=== PATIENT | female | born 1945 | race Caucasian/White ===

== ENCOUNTER 2016-11-08 12:21 | Outpatient (CLI) ==
--- NOTE | 2016-11-09 07:57 | MRI ---
EXAM: MRI of the temporomandibular joints (bilateral) without contrast COMPARISON: None available. HISTORY: Right jaw pain. The jaw reportedly feels like it slips in and out of the socket. TECHNIQUE: Multiplanar noncontrast MR images of the temporomandibular joints were acquired using a 1.2 Payton magnet with the jaw in both the open and closed position. FINDINGS: Right temporomandibular joint: There is marked arthritis involving the right temporomand ibular joint with articular surface remodeling and marginal osteophytes. There is decreased excursio n. There is markedly diminished size irregularity of the posterior portion of the articular disc rel ated to a degenerative type tear. The anterior articular disc remnant remains displaced anteriorly with both opening and closing of the jaw. 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 There is decreased excursion. There is overall diminished size of the articular di sc in particular posteriorly related to a degenerative type tear with partial disc recapture during opening and closing of the jaw though there is persistent anterior displacement of the remnant with opening and closing. IMPRESSION: 1. Marked degenerative changes of the right temporomandibular joint with moderately severe degenera tive changes of the left temporomandibular joint. 2. 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 2. Less extensive degenerative type tear of the articular disc at the left temporomandibular joint with partial disc recapture as described.
== END 2016-11-08 12:22 | disposition home or self-care (01) ==
LOC: RAD 12:21
PROVIDERS: ATTEND Family Medicine
DX: M26.609 Unspecified temporomandibular joint disorder, unspecified side (principal)

== ENCOUNTER 2018-04-20 14:30 | Outpatient (CLI) ==
--- NOTE | 2018-04-20 16:51 | DI ---
EXAM: Three views of the left fingers. History: Left finger cyst. Findings: No acute fracture or dislocation. Moderate to severe narrowing of the DIP joint of the th ird digit with marginal sclerosis and osteophyte formation. There is soft tissue swelling of the thir d digit which is more focal surrounding the DIP joint. No abnormal calcifications or radiopaque forei gn bodies. Impression: 1. No acute osseous abnormality. 2. 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 3. Soft tissue swelling of the third digit which is more focal surrounding the DIP joint.
== END 2018-04-20 14:31 | disposition home or self-care (01) ==
LOC: RAD 14:30
PROVIDERS: ATTEND Family Medicine
DX: M25.842 Other specified joint disorders, left hand (principal)

== ENCOUNTER 2018-11-27 15:00 | Outpatient (RCR) ==
--- NOTE | 2018-11-05 16:31 | RS.OPPTEV2 ---
Date of Note: 11/05/18 Visit #: 1 Number of visits approved by Insurance: n/a Date of Evaluation: 11/05/18 Payer Source: MEDICARE Surgery Performed?: No Treatment Diagnosis: trochanteric bursitis L hip, L hip pain, muscle tightness History of Condition/Mechanism of Injury:: pt reports pain began approx 1 year ago. States that MD has been giving her injections but she continues to have pain. Prior Level of Function.....Patient was independent with: ADL's, Self Care, Caregiving, Ambulation/Mobility, Community Integration/Access Functional Limitations: Sleep, Standing, Squatting, Ambulation Current Subjective/complaints:: pt states that she continues to have pain in area of L trochanter. pt states pain is limiting her from performing her normal hobby of gardening. Treatment Side (optional): Left *Precautions: n/a Medical History Medical History: Arthritis Medical History Comments:: basal cell skin CA Smoking Status: Never smoker Hx Home Medications: vesicare, aspirin, citilophram, diclofenac, trazadone, loratadine, pantoprazole, eye vitamin Patient's Goals: decrease hip pain Pain Assessment - Pain Description Pain Location: L hip in area of trochanter Pain Description: Aching Current Pain Intensity: 1 at rest Worst Pain Intensity: 7 Functional Outcome Measure LE Functional Scale: 51 - G Codes & Severity Modifier G Codes & Modifier: n/a Source of G Code score: n/a Observation - Observation Posture: Forward Head, Rounded Shoulders, Increased Thoracic Kyphosis Handedness: Right Gait - Gait Pattern General Gait Pattern Observation: No Deviations/Normal (pt amb with slight antalgic gait.) General Range of Motion: BUE WFL's. RLE WFL's. LLE WFL's with pain Muscle Strength: BUE 5/5. RLE 5/5. LLE 4+/5 Hip ROM: Right WFL's Hip Muscle Strength: Right WFL's - Left Hip ROM Left Hip ROM Limitations: Soft Tissue Tightness, Pain, Muscle Weakness, Tightness on Left, Pain on Left - Left Hip Strength Left Hip Flexion: 4 Good Left Hip Extension: 4+ Good + Left Hip Abduction: 4- Good- Left Hip Adduction: 4 Good - Right Hip Strength Comments: hip scour -. IT band tight on L, hamstring tight on L, - Special Test MOE Test: Positive Left Cecy Test: Negative Left Jean-Claude Test: Negative Left Palpation Palpation Findings: Tenderness Comments:: point tenderness L greater trochanter Sensation - Sensation Right Upper Extremity: Intact/Normal Left Upper Extremity: Intact/Normal Right Lower Extremity: Intact/Normal Left Lower Extremity: Intact/Normal Balance - Sitting Balance Static Sitting Balance: Normal Dynamic Sitting Balance: Normal - Standing Balance Static Standing Balance: Good Dynamic Standing Balance: Good - Treatment Modality: Ultrasound Parameters/Method Applied: 1.5 w/cm2 x 8 mins Treatment Area: L greater trochanter Patient Position: Right Sidelying - Heat/Cryotherapy Treatment: Cryotherapy Comments:: L hip Interventions - Exercise/Activities/Manual Therapy Exercises/Activities: pt received stretching to IT band, hamstring, isometric hip add, resisted hip abd, Manual Therapy: n/a - Charges Timed Code Treatment Minutes: 51 Total Treatment Time: 62 Procedures billed for this date of service:: eval low, ultrasound, cold pack EVALUATION COMPLEXITY LEVEL EVALUATION COMPLEXITY LEVEL: HISTORY: Low, EXAM OF BODY SYSTEMS: Low, CLINICAL PRESENTATION: Low, CLINICAL DECISION MAKING: Low Assessment Assessment: pt presents with pain in L hip, increased tightness in L IT band, hamstring, as well as weakness. Feel pt would benefit from skilled PT for therex for stretching, strengthening, as well as modalities to decrease inflammation and pain. Patient Education: Home Exercise Program, Education of Plan of Care Rehab Potential: Good Short Term Goals Goal #1: pt independent with initial HEP Goal to be met by: 11/18/18 Goal #2: Decrease hamstring tightness L equal to R Goal to be met by: 11/18/18 Goal #3: pt rate pain < 4/10 with activity L hip Goal to be met by: 11/18/18 Goal #4: Improve L IT band flexibility to WFL Goal to be met by: 11/18/18 Halfway Goals Goal #1: pt able to tolerate standing, walking to complete normal household tasks Goal to be met by: 11/27/18 Goal #2: Decrease pain in L hip <2/10 with activity Goal to be met by: 11/27/18 Goal #3: pt report able to sleep on L side without increased pain Goal to be met by: 11/27/18 Plan - Treatment to be Provided Procedures: Therapeutic Exercises, Therapeutic Activity, Manual Therapy, Patient Education Modalities: Electrical Stimulation, Ultrasound/Phonophoresis, Cryotherapy, Hot Packs - Treatment Plan Frequency: 3 X week Duration: 3 weeks Dates of Manager [employer] Goals: 11/27/18 Expiration date of current Insurance Approval:: 11/27/18 - Treatment Code (1) Trochanteric bursitis of left hip Code(s): M70.62 - TROCHANTERIC BURSITIS, LEFT HIP (2) Left hip pain Code(s): M25.552 - PAIN IN LEFT HIP (3) Muscle tightness Code(s): M62.89 - OTHER SPECIFIED DISORDERS OF MUSCLE (4) Muscle weakness Code(s): M62.81 - MUSCLE WEAKNESS (GENERALIZED)
--- NOTE | 2018-11-09 15:16 | RS.OPPTDN ---
Subjective Date of Note: 11/09/18 Visit #: 2 Number of visits approved by Insurance: na Date of Evaluation: 11/05/18 Payer Source: MEDICARE Treatment Diagnosis: trochanteric bursitis L hip, L hip pain, muscle tightness Current Subjective/complaints:: Patient reports the L hip is not hurting currently,but had elevated pain over the weekend if she rested on the L hip , also interrupting her sleep at times.She is doing her HEP. *Precautions: n/a Pain Assessment - Pain Description Pain Location: L hip Pain Description: Dull, Aching Current Pain Intensity: 0 at rest Other Comments regarding Pain:: 8/10 at times over the weekend - Treatment Modality: Ultrasound Parameters/Method Applied: 10 mins. @ 1.5 w/cm2,cont. mode to L hip Patient Position: Right Sidelying (20 mins. prior to US and ex) - Heat/Cryotherapy Treatment: Hot Pack (20 mins. prior to US and exercises) Interventions - Exercise/Activities/Manual Therapy Exercises/Activities: 25 mins. total,of isometric hip abd /adduction ,90/90 hamstring stretches,IT band stretches,piriformis stretches.SI muscle energy for leg length discrepancy. Total minutes of Exercise: 25 Manual Therapy: n/a Total minutes of Manual Therapy: 0 HOME EXERCISE PROGRAM: isometric hip abd /add,hamstring stretches,IT band stretches,piriformis stretches - Charges Timed Code Treatment Minutes: 25 Total Treatment Time: 55 Procedures billed for this date of service:: hp ,US, ex 2 Assessment: Patient has only minimal tightness in the hamstrings,greater on the L side .She is tender to palpate the L trochanter and just posterior to it today.She has L LE shorter than the R ,but is corrected after SI muscle energy.She reports no pain with standing and exiting the clinic today.Instructed to use ice for pain relief on the trochanter area ,due to possible tendonitis present. Patient Education: Education of diagnosis, Body/Joint mechanics, Home Exercise Program, Home Safety, Activity Modification, Education of Plan of Care Patient demonstrates compliance with HEP?: Yes Short Term Goals Goal #1: pt independent with initial HEP Goal to be met by: 11/18/18 Progress towards Goal:: Progressing Goal #2: Decrease hamstring tightness L equal to R Goal to be met by: 11/18/18 Progress towards Goal:: Progressing Goal #3: pt rate pain < 4/10 with activity L hip Goal to be met by: 11/18/18 Goal #4: Improve L IT band flexibility to WFL Goal to be met by: 11/18/18 Half-Way Goals Goal #1: pt able to tolerate standing, walking to complete normal household tasks Goal to be met by: 11/27/18 Goal #2: Decrease pain in L hip <2/10 with activity Goal to be met by: 11/27/18 Goal #3: pt report able to sleep on L side without increased pain Goal to be met by: 11/27/18 Plan Dates of Medical Massage Therapist Goals: 11/27/18 Expiration date of current Insurance Approval:: na PLAN: Cont. skilled PT to reduce /eliminate L hip /trochanteric pain,returning to PLOF.
--- NOTE | 2018-11-11 15:44 | RS.OPPTDN ---
Subjective Date of Note: 11/11/18 Visit #: 3 Number of visits approved by Insurance: na Date of Evaluation: 11/05/18 Payer Source: MEDICARE Treatment Diagnosis: trochanteric bursitis L hip, L hip pain, muscle tightness Current Subjective/complaints:: Patient reports the pain increases with going up steps or getting up from a lower seat. *Precautions: n/a Pain Assessment - Pain Description Pain Location: L hip/trochanter Pain Description: Dull, Aching, Chronic Current Pain Intensity: 4 - Treatment Modality: Ultrasound Parameters/Method Applied: 10 mins. @ 1.5 w/cm2 to L hip . Patient Position: Right Sidelying - Heat/Cryotherapy Treatment: Hot Pack (20 mins. prior to US and exercises) Interventions - Exercise/Activities/Manual Therapy Exercises/Activities: 30 mins. total,HEP review ,added R sidelying exercises of clam shells,SLR's.SLR's combined with knee flex/extension,hip IR/ER with knee fully extended. Total minutes of Exercise: 30 Manual Therapy: n/a HOME EXERCISE PROGRAM: isometric hip abd /add,hamstring stretches,IT band stretches,piriformis stretches - Charges Timed Code Treatment Minutes: 40 Total Treatment Time: 60 Procedures billed for this date of service:: hp,US ,ex 2 Assessment: Patient reports fatigue only with side-lying exercises today,with good return demo.She has no increased L hip pain with weight bearing as she exits the clinic today.We discussed to progressing to resistive exercises on leg ress to improve the sit to stand from lower seated surfaces. Patient Education: Education of diagnosis, Body/Joint mechanics, Home Exercise Program, Home Safety, Activity Modification, Education of Plan of Care Patient demonstrates compliance with HEP?: Yes Short Term Goals Goal #1: pt independent with initial HEP Goal to be met by: 11/18/18 Progress towards Goal:: Progressing Goal #2: Decrease hamstring tightness L equal to R Goal to be met by: 11/18/18 Progress towards Goal:: Progressing Goal #3: pt rate pain < 4/10 with activity L hip Goal to be met by: 11/18/18 Progress towards Goal:: Progressing Goal #4: Improve L IT band flexibility to WFL Goal to be met by: 11/18/18 Talent Engineer Goals Goal #1: pt able to tolerate standing, walking to complete normal household tasks Goal to be met by: 11/27/18 Goal #2: Decrease pain in L hip <2/10 with activity Goal to be met by: 11/27/18 Goal #3: pt report able to sleep on L side without increased pain Goal to be met by: 11/27/18 Plan Dates of Care Home Goals: 11/27/18 Expiration date of current Insurance Approval:: na PLAN: Cont. skilled PT to reduce /eliminate L hip pain.
--- NOTE | 2018-11-13 14:05 | RS.OPPTDN ---
Subjective Date of Note: 11/13/18 Visit #: 4 Number of visits approved by Insurance: na Date of Evaluation: 11/05/18 Payer Source: MEDICARE Treatment Diagnosis: trochanteric bursitis L hip, L hip pain, muscle tightness Current Subjective/complaints:: Patient reports she is progressing .She was able to go up and down steps at home earlier today with less difficulty. *Precautions: n/a Pain Assessment - Pain Description Pain Location: L hip Pain Description: Dull, Aching Current Pain Intensity: 0 - Heat/Cryotherapy Treatment: Hot Pack (20 mins. prior to ) Interventions - Exercise/Activities/Manual Therapy Exercises/Activities: HEP review only today. Total minutes of Exercise: 0 Manual Therapy: 20 mins. , soft tissue mobs. to L hip area. Total minutes of Manual Therapy: 20 HOME EXERCISE PROGRAM: isometric hip abd /add,hamstring stretches,IT band stretches,piriformis stretches - Charges Timed Code Treatment Minutes: 25 Total Treatment Time: 45 Procedures billed for this date of service:: hp, manual therapy 2 Assessment: Patient reports the pain is less frequent ,less intense when present.She has tenderness present in the piriformis today with deep tissue mobs.She is very compliant to HEP and motivated to improve. Patient Education: Education of diagnosis, Body/Joint mechanics, Home Exercise Program, Home Safety, Activity Modification, Education of Plan of Care Patient demonstrates compliance with HEP?: Yes Short Term Goals Goal #1: pt independent with initial HEP Goal to be met by: 11/18/18 Progress towards Goal:: Progressing Goal #2: Decrease hamstring tightness L equal to R Goal to be met by: 11/18/18 Progress towards Goal:: Progressing Goal #3: pt rate pain < 4/10 with activity L hip Goal to be met by: 11/18/18 Progress towards Goal:: Progressing Goal #4: Improve L IT band flexibility to WFL Goal to be met by: 11/18/18 Progress towards Goal:: Progressing Change Management Specialist Goals Goal #1: pt able to tolerate standing, walking to complete normal household tasks Goal to be met by: 11/27/18 Progress towards goal: Progressing (tolerating up/down steps better) Goal #2: Decrease pain in L hip <2/10 with activity Goal to be met by: 11/27/18 Goal #3: pt report able to sleep on L side without increased pain Goal to be met by: 11/27/18 Plan Dates of [facility] Goals: 11/27/18 Expiration date of current Insurance Approval:: na PLAN: Cont. skilled PT to reduce/eliminate L hip /trochanteric pain.
--- NOTE | 2018-11-16 16:22 | RS.OPPTDN ---
Subjective Date of Note: 11/16/18 Visit #: 5 Number of visits approved by Insurance: na Date of Evaluation: 11/05/18 Payer Source: MEDICARE Treatment Diagnosis: trochanteric bursitis L hip, L hip pain, muscle tightness Current Subjective/complaints:: Patient reports feeling better,c/o muscl soreness from doing er hEP,but no pain today. *Precautions: n/a - Heat/Cryotherapy Treatment: Hot Pack (20 mins. prior to exercises) Interventions - Exercise/Activities/Manual Therapy Exercises/Activities: 15 mins. ,isometric hip abd /add,then bilateral legpress , 15 reps @ 75#,90#,then 105 #. Total minutes of Exercise: 15 Manual Therapy: 25 mins. , soft tissue mobs. to L hip area. Total minutes of Manual Therapy: 25 HOME EXERCISE PROGRAM: isometric hip abd /add,hamstring stretches,IT band stretches,piriformis stretches - Charges Timed Code Treatment Minutes: 40 Total Treatment Time: 60 Procedures billed for this date of service:: hp,ex,manual 2 Assessment: Progressing well toward all rehab goals ,tolerates increased pressure with manual therapy.She reports the legs feel stronger ,easier sit to stand and going up/down steps. Patient Education: Education of diagnosis, Body/Joint mechanics, Home Exercise Program, Home Safety, Activity Modification, Education of Plan of Care Patient demonstrates compliance with HEP?: Yes Short Term Goals Goal #1: pt independent with initial HEP Goal to be met by: 11/18/18 Progress towards Goal:: Progressing Goal #2: Decrease hamstring tightness L equal to R Goal to be met by: 11/18/18 Progress towards Goal:: Progressing Goal #3: pt rate pain < 4/10 with activity L hip Goal to be met by: 11/18/18 Progress towards Goal:: Met Goal #4: Improve L IT band flexibility to WFL Goal to be met by: 11/18/18 Progress towards Goal:: Progressing [facility] Goals Goal #1: pt able to tolerate standing, walking to complete normal household tasks Goal to be met by: 11/27/18 Progress towards goal: Progressing (tolerating up/down steps better) Goal #2: Decrease pain in L hip <2/10 with activity Goal to be met by: 11/27/18 Progress towards goal: Progressing Goal #3: pt report able to sleep on L side without increased pain Goal to be met by: 11/27/18 Progress towards goal: Progressing Plan Dates of Penitentiary Goals: 11/27/18 Expiration date of current Insurance Approval:: na PLAN: Cont. PT to reduce /eliminate L hip /trochanter pain.
--- NOTE | 2018-11-18 16:10 | RS.OPPTDN ---
Subjective Date of Note: 11/18/18 Visit #: 6 Number of visits approved by Insurance: na Date of Evaluation: 11/05/18 Payer Source: MEDICARE Treatment Diagnosis: trochanteric bursitis L hip, L hip pain, muscle tightness Current Subjective/complaints:: Pleased with her progress,less intensity of pain when it is present,also less tender to palpate the L trochanter. *Precautions: n/a Pain Assessment - Pain Description Pain Location: L hip Current Pain Intensity: 0 at rest Other Comments regarding Pain:: 3/10 when present - Heat/Cryotherapy Treatment: Hot Pack (20 mins. prior to manual therapy) Interventions - Exercise/Activities/Manual Therapy Exercises/Activities: Instructed in standing IT band stretch,gives return demo. Total minutes of Exercise: 1 Manual Therapy: 30 mins. , soft tissue mobs. to L hip area. Total minutes of Manual Therapy: 30 HOME EXERCISE PROGRAM: isometric hip abd /add,hamstring stretches,IT band stretches,piriformis stretches - Charges Timed Code Treatment Minutes: 30 Total Treatment Time: 51 Procedures billed for this date of service:: hp,manual therapy 2 Assessment: Progressing very well,good return demo of standing IT band stretch, is compliant to HEP.She has normal gait when exiting the clinic today.Her pain is intermittent and minimal when present . Patient Education: Education of diagnosis, Body/Joint mechanics, Home Exercise Program, Home Safety, Activity Modification, Education of Plan of Care Patient demonstrates compliance with HEP?: Yes Short Term Goals Goal #1: pt independent with initial HEP Goal to be met by: 11/18/18 Progress towards Goal:: Met Goal #2: Decrease hamstring tightness L equal to R Goal to be met by: 11/18/18 Progress towards Goal:: Progressing Goal #3: pt rate pain < 4/10 with activity L hip Goal to be met by: 11/18/18 Progress towards Goal:: Met Goal #4: Improve L IT band flexibility to WFL Goal to be met by: 11/18/18 Progress towards Goal:: Progressing 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 Goals Goal #1: pt able to tolerate standing, walking to complete normal household tasks Goal to be met by: 11/27/18 Progress towards goal: Partially Met (occasional aching at end of the day , dependent type of activity,such as prolonged standing) Goal #2: Decrease pain in L hip <2/10 with activity Goal to be met by: 11/27/18 Progress towards goal: Progressing Goal #3: pt report able to sleep on L side without increased pain Goal to be met by: 11/27/18 Progress towards goal: Progressing Plan Dates of 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 Goals: 11/27/18 Expiration date of current Insurance Approval:: na PLAN: Cont skilled PT ,has appt. this Friday11-20-18,then initiate D/C plan for next week.
--- NOTE | 2018-11-20 15:37 | RS.OPPTDN ---
Subjective Date of Note: 11/20/18 Visit #: 7 Number of visits approved by Insurance: na Date of Evaluation: 11/05/18 Payer Source: MEDICARE Treatment Diagnosis: trochanteric bursitis L hip, L hip pain, muscle tightness Current Subjective/complaints:: Reports toleating being longer on her feet for daily taks inside and outside of the home. *Precautions: n/a Pain Assessment - Pain Description Pain Location: L hip Other Comments regarding Pain:: occasional "twinge" - Heat/Cryotherapy Treatment: Hot Pack (20 mins. prior to ex and manual ) Interventions - Exercise/Activities/Manual Therapy Exercises/Activities: 20 mins. bilateral leg press,10/16 @ 150 #.Isometric hip abd /adduction. Total minutes of Exercise: 20 Manual Therapy: 20 mins. , soft tissue mobs. to L hip area. Total minutes of Manual Therapy: 20 HOME EXERCISE PROGRAM: isometric hip abd /add,hamstring stretches,IT band stretches,piriformis stretches - Charges Timed Code Treatment Minutes: 40 Total Treatment Time: 60 Procedures billed for this date of service:: hp,ex ,manual therapy Assessment: Progressing well,tolerates more aggressive activities with less pain.She has no tenderness upon palpation of the L trochanetr today. She is very active at home and motivated ,does HEP regularly. Patient Education: Education of diagnosis, Body/Joint mechanics, Home Exercise Program, Home Safety, Activity Modification, Education of Plan of Care Patient demonstrates compliance with HEP?: Yes Short Term Goals Goal #1: pt independent with initial HEP Goal to be met by: 11/18/18 Progress towards Goal:: Met Goal #2: Decrease hamstring tightness L equal to R Goal to be met by: 11/18/18 Progress towards Goal:: Progressing Goal #3: pt rate pain < 4/10 with activity L hip Goal to be met by: 11/18/18 Progress towards Goal:: Met Goal #4: Improve L IT band flexibility to WFL Goal to be met by: 11/18/18 Progress towards Goal:: Met Jail Goals Goal #1: pt able to tolerate standing, walking to complete normal household tasks Goal to be met by: 11/27/18 Progress towards goal: Partially Met (occasional aching at end of the day , dependent type of activity,such as prolonged standing) Goal #2: Decrease pain in L hip <2/10 with activity Goal to be met by: 11/27/18 Progress towards goal: Progressing Goal #3: pt report able to sleep on L side without increased pain Goal to be met by: 11/27/18 Progress towards goal: Progressing Plan Dates of Conductor/Brakeman Goals: 11/27/18 Expiration date of current Insurance Approval:: na PLAN: Cont. skilled PT,intiate D/C plan next week due to good progress.
--- NOTE | 2018-11-25 09:15 | RS.OPPTDN ---
Subjective Date of Note: 11/25/18 Visit #: 8 Number of visits approved by Insurance: na Date of Evaluation: 11/05/18 Payer Source: MEDICARE Treatment Diagnosis: trochanteric bursitis L hip, L hip pain, muscle tightness Current Subjective/complaints:: Patient reports going down the steps this morning was not painful.She has a dull aching in the L hip occasionally,but tolerating ADL's much better. *Precautions: n/a Pain Assessment - Pain Description Pain Location: L hip Pain Description: Dull, Aching Current Pain Intensity: 0 at rest Other Comments regarding Pain:: occasional dull ache - Heat/Cryotherapy Treatment: Hot Pack (20 mins. prior to exercise and manual therapy) Interventions - Exercise/Activities/Manual Therapy Exercises/Activities: 20 mins. ,R side-lying exercises of clam shell motion,side -lying SLR,then SLR combined with knee flex/extension ,then hip ER/IR with knee fully extended. Total minutes of Exercise: 20 Manual Therapy: 20 mins. , soft tissue mobs. to L hip area. Total minutes of Manual Therapy: 20 HOME EXERCISE PROGRAM: isometric hip abd /add,hamstring stretches,IT band stretches,piriformis stretches - Charges Timed Code Treatment Minutes: 40 Total Treatment Time: 60 Procedures billed for this date of service:: hp,ex ,manual Assessment: Patient progressing very well,has very good technique for the side- lying exercises,good eccentric control without pain in the L trochanter.She is now able to go up/down steps with out pain.She is highly motivated and compliant to HEP. Patient Education: Education of diagnosis, Body/Joint mechanics, Home Exercise Program, Home Safety, Activity Modification, Education of Plan of Care Patient demonstrates compliance with HEP?: Yes Short Term Goals Goal #1: pt independent with initial HEP Goal to be met by: 11/18/18 Progress towards Goal:: Met Goal #2: Decrease hamstring tightness L equal to R Goal to be met by: 11/18/18 Progress towards Goal:: Progressing Goal #3: pt rate pain < 4/10 with activity L hip Goal to be met by: 11/18/18 Progress towards Goal:: Met Goal #4: Improve L IT band flexibility to WFL Goal to be met by: 11/18/18 Progress towards Goal:: Met Circus Rider Goals Goal #1: pt able to tolerate standing, walking to complete normal household tasks Goal to be met by: 11/27/18 Progress towards goal: Met Goal #2: Decrease pain in L hip <2/10 with activity Goal to be met by: 11/27/18 Progress towards goal: Partially Met (90 % of the time she has no pain or less than 2/10) Goal #3: pt report able to sleep on L side without increased pain Goal to be met by: 11/27/18 Progress towards goal: Progressing Plan Dates of Circus Rider Goals: 11/27/18 Expiration date of current Insurance Approval:: na PLAN: Imitiate D/C plan after next session .
--- NOTE | 2018-11-27 16:12 | RS.OPPTDN ---
Subjective Date of Note: 11/27/18 Visit #: 9 Number of visits approved by Insurance: na Date of Evaluation: 11/05/18 Payer Source: MEDICARE Treatment Diagnosis: trochanteric bursitis L hip, L hip pain, muscle tightness Current Subjective/complaints:: Pleased with her progress ,is aware of D/C plan today. *Precautions: n/a Pain Assessment - Pain Description Pain Location: L hip Current Pain Intensity: 0 - Heat/Cryotherapy Treatment: Hot Pack (20 mins. priort to manual therapy) Interventions - Exercise/Activities/Manual Therapy Exercises/Activities: HEP only Total minutes of Exercise: 0 Manual Therapy: 25 mins. , soft tissue mobs. to L hip area. Total minutes of Manual Therapy: 25 HOME EXERCISE PROGRAM: isometric hip abd /add,hamstring stretches,IT band stretches,piriformis stretches - Charges Timed Code Treatment Minutes: 25 Total Treatment Time: 45 Procedures billed for this date of service:: hp,manual therapy 2 Assessment: Patient progressed well,has met all goals.She is pain free with ADL' s.She is motivated ,does HEP regularly.She is aware of D/C today.All rehab goals met. Patient Education: Home Exercise Program, Education of Plan of Care Patient demonstrates compliance with HEP?: Yes Short Term Goals Goal #1: pt independent with initial HEP Goal to be met by: 11/18/18 Progress towards Goal:: Met Goal #2: Decrease hamstring tightness L equal to R Goal to be met by: 11/18/18 Progress towards Goal:: Met Goal #3: pt rate pain < 4/10 with activity L hip Goal to be met by: 11/18/18 Progress towards Goal:: Met Goal #4: Improve L IT band flexibility to WFL Goal to be met by: 11/18/18 Progress towards Goal:: Met Halfway Goals Goal #1: pt able to tolerate standing, walking to complete normal household tasks Goal to be met by: 11/27/18 Progress towards goal: Met Goal #2: Decrease pain in L hip <2/10 with activity Goal to be met by: 11/27/18 Progress towards goal: Met (90 % of the time she has no pain or less than 2/10) Goal #3: pt report able to sleep on L side without increased pain Goal to be met by: 11/27/18 Progress towards goal: Met Plan Dates of Pulp Bleacher Goals: 11/27/18 Expiration date of current Insurance Approval:: na PLAN: D/C due to good progress.
--- NOTE | 2018-11-30 13:07 | RS.OPPTDC ---
Date of Discharge: 11/30/18 Date of Evaluation: 11/05/18 Number of Visits: 9 Treatment Diagnosis: trochanteric bursitis L hip, L hip pain, muscle tightness Current Level of Function: pt independent with HEP, no pain noted. pt states now able to sleep on L side. pt Oswestry scale improved to 74/80 Current Complaints/Gains: pt pleased with progress, no pain with ADL's or going up/down steps. Functional Outcome Measure Oswestry LBP: 74 - G Codes & Severity Modifier G Codes & Modifier: n/a Source of G Code score: n/a Observation - Observation Posture: Forward Head, Rounded Shoulders Interventions - Exercise/Activities/Manual Therapy Exercises/Activities: n/a Manual Therapy: n/a HOME EXERCISE PROGRAM: isometric hip abd /add,hamstring stretches,IT band stretches,piriformis stretches - Charges Timed Code Treatment Minutes: n/a Total Treatment Time: n/a Procedures billed for this date of service:: n/a Assessment Assessment: pt has improved with decreased pain with increased independence with ADL's. pt has met all goals. Patient Education: Home Exercise Program, Education of Plan of Care Rehab Potential: Good Short Term Goals Goal #1: pt independent with initial HEP Goal to be met by: 11/18/18 Progress towards Goal:: Met Goal #2: Decrease hamstring tightness L equal to R Goal to be met by: 11/18/18 Progress towards Goal:: Met Goal #3: pt rate pain < 4/10 with activity L hip Goal to be met by: 11/18/18 Progress towards Goal:: Met Goal #4: Improve L IT band flexibility to WFL Goal to be met by: 11/18/18 Progress towards Goal:: Met Group Home Goals Goal #1: pt able to tolerate standing, walking to complete normal household tasks Goal to be met by: 11/27/18 Progress towards goal: Met Goal #2: Decrease pain in L hip <2/10 with activity Goal to be met by: 11/27/18 Progress towards goal: Met (90 % of the time she has no pain or less than 2/10) Goal #3: pt report able to sleep on L side without increased pain Goal to be met by: 11/27/18 Progress towards goal: Met Plan Reason for Discharge:: All Goals Met
== END 2018-12-01 23:59 ==
PROVIDERS: ATTEND Orthopaedic Surgery
DX: M70.62 Trochanteric bursitis, left hip (principal); M25.552 Pain in left hip; M62.89 Other specified disorders of muscle; M62.81 Muscle weakness (generalized)

== ENCOUNTER 2024-02-06 11:46 | Observation (INO) ==
[2024-02-06 12:08] VITALS: BMI 19.4
[2024-02-06] MEDS: ZOFRAN 4 MG/2 ML IVP STA (12:38)
[2024-02-06] MEDS: SODIUM CHLORIDE 1,000 ML IV ONE ×2 (12:38→14:29)
--- NOTE | 2024-02-06 12:44 | ED.PDOC ---
General ED Provider: Dr. PEBBLES MONTGOMERY MD Chief Complaint: Nausea/Vomiting Stated Complaint: 78 years old female coming to the emergency room for abdominal pain. Patient has been complaining of right-sided abdominal pain for the past few days the pain associated with nausea and nonbloody nonbilious vomiting patient also reports multiple episodes of nonbloody diarrhea. Patient also reports that she had fever. Otherwise patient denies any headache, shortness of breath, changes in the urine. Patient is status post cholecystectomy, total abdominal hysterectomy and last bowel movement was earlier this morning. Time Seen by Provider: 02/06/24 12:15 Information Source: Patient and Family Primary Care Provider: ELEAZAR HERRERA Nursing and Triage Documentation Reviewed and Agree: Yes What is Opioid Naive?: *Opioid Naive implies the patient is not already taking opioids or not chronically receiving opioids on a daily basis. *PRN dosing is not "usually" associated with tolerance. *Patients are at higher risk of over-sedation and aspiration. What is Opioid Tolerant?: *Opioid Tolerance implies less than the expected response to an opioid. *Acquired tolerance is defined by the patient taking 60mg of oral morphine daily (or equianalgesic dose of another opioid) for 1 week or more. *Often associated with chronic pain. *May take more than usual dose to achieve desired pain control. Review of Systems Review Of Systems Constitutional: Reports No symptoms PFSH Social History Smoking and tobacco status: Never smoker Female Reproductive History Menstrual Hx Hysterectomy: Yes Hx Tubal Ligation: No Physical Exam Physical Exam Appearance: Reports Well-appearing Respiratory: Reports Airway patent, Breath sounds clear and Breath sounds equal Cardiovascular: Reports RRR, Pulses normal, No rub and No murmur GI/: Reports Soft, No masses, Bowel sounds normal and Tender (Mild generalized tenderness more in the right lower quadrant, positive tenderness and rebound at McBurney's point) Musculoskeletal: Reports Normal strength and ROM intact Skin: Reports Warm and Normal color Neurological: Reports Sensation intact and Motor intact Psychiatric: Reports Affect appropriate Interpretation EKG Interpretation EKG Interpretation By: ED Physician Time of EKG #1: 12:11 Rate: Normal Rhythm: Sinus Ectopy: None [place]: NL ST Segment: Normal Interpretation: LVH, no sings of acute ischemia Course Course 02/06/24 12:43 02/06/24 12:43 Orders, Labs, Meds: Lab Review 02/06/24 02/06/24 12:40 12:43 WBC 7.34 RBC 3.99 L Hgb 12.0 Hct 35.5 L MCV 89.0 MCH 30.1 MCHC 33.8 RDW Coeff of Neal 13.2 Plt Count 236 Immature Gran % (Auto) 0.8 Neut % (Auto) 55.7 Lymph % (Auto) 17.3 [place] % (Auto) 24.9 H Eos % (Auto) 0.8 Baso % (Auto) 0.5 Neut # (Auto) 4.1 Lymph # (Auto) 1.3 [place] # (Auto) 1.8 Eos # (Auto) 0.1 Baso # (Auto) 0.0 Immature Gran # (Auto) 0.1 Sodium 134.1 L Potassium 3.26 L Chloride 99.8 Carbon Dioxide 27.3 Anion Gap 10.26 BUN 10.8 Creatinine 0.64 Estimated GFR (MDRD) 90.00 BUN/Creatinine Ratio 16.87 Glucose 107.5 H Lactic Acid 0.67 L Calcium 8.80 Total Bilirubin 1.25 AST 34.3 ALT 24.4 Alkaline Phosphatase 83.5 Troponin I 0.013 Total Protein 6.97 Albumin 4.07 Globulin 2.90 Albumin/Globulin Ratio 1.40 Lipase 923.5 H Urine Color Yellow Urine Clarity Clear Urine pH 6.5 Ur Specific [place] 1.010 Urine Protein Trace H Urine Glucose (UA) Negative Urine Ketones Negative Urine Blood Negative Urine Nitrite Negative Urine Bilirubin Negative Urine Urobilinogen 0.2 Ur Leukocyte Esterase Negative Ur Squamous Epith Cells 0-2 Ur Renal Epithelial Cell 2-5 Triple Phos Crystals Trace Urine Bacteria Trace Urine Mucus 1+ Orders Category Date Time Status EKG-(ED ONLY) Stat CARDIO 02/06/24 12:11 Completed BLOOD CULTURE (ED ONLY) Stat LAB 02/06/24 12:43 Received BLOOD CULTURE Stat LAB 02/06/24 12:48 Received CBC W/ AUTO DIFF Stat LAB 02/06/24 12:43 Completed CMP [COMPREHENSIVE METABOLIC PANEL] Stat LAB 02/06/24 12:43 Completed COVID [SARS COV-2 RNA RAPID KRISTOFER] Stat LAB 02/06/24 Uncollected LACTIC ACID Stat LAB 02/06/24 12:43 Completed LIPASE Stat LAB 02/06/24 12:43 Completed TROPONIN I Stat LAB 02/06/24 12:43 Completed URINALYSIS C & S IF INDICATED Stat LAB 02/06/24 12:40 Completed Ondansetron HCl/Pf [Zofran 4 mg/2 ml] Meds 02/06/24 12:33 Discontinued 4 mg IVP ONCE STA Sodium Chloride 0.9% [Sodium Chloride] 1,000 ml Meds 02/06/24 12:[address] ABDOMEN/PELVIS WO CONTRAST Stat RADS 02/06/24 12:26 Completed Medications Discontinued Medications Generic Name Dose Route Start Last Admin Trade Name Freq PRN Reason Stop Dose Admin Sodium Chloride 1,000 mls @ 1,000 mls/hr 02/06/24 12:30 02/06/24 12:38 Sodium Chloride IV 02/06/24 13:29 1,000 mls/hr BOLUS ONE Administration Ondansetron HCl 4 mg 02/06/24 12:33 02/06/24 12:38 Ondansetron Hcl/Pf 4 Mg/2 Ml Sdv IVP 02/06/24 12:34 4 mg ONCE STA Administration Vital Signs: Temp Pulse Resp BP Pulse Ox 02/06/24 12:03 98.8 F 68 20 137/54 L 93 L CBC did not show leukocytosis CMP showed mild hypokalemia which was replaced. Patient was given 1 L of IV NS and 4 mg of Zofran lipase 923 LFTs within normal limits CAT scan showing findings suggestive of enteritis. Patient with acute pancreatitis will need further IV fluids and trending of the lipase. Patient will be admitted under the hospitalist services for further management. Discharge Plan Discharge Patient Disposition: PLACED OBSERVATION Discharge Problem: Acute pancreatitis Did you review [place] [employer]OR for ALL controlled substances?: Not Applicable ED Provider: PEBBLES MONTGOMERY Condition: Stable
[2024-02-06 12:54] LABS: BASOPHILS % (AUTO) 0.5 % (0.0-3.0); EOSINOPHILS # (AUTO) 0.1 K/ul (0.0-0.7); EOSINOPHILS % (AUTO) 0.8 % (0.0-7.0); HEMATOCRIT 35.5 % (37.0-47.0); IMMATURE GRANULOCYTE # (AUTO) 0.1 (0.0-1.0); IMMATURE GRANULOCYTE % (AUTO) 0.8 % (0.0-5.0); LYMPHOCYTES # (AUTO) 1.3 K/uL (0.60-3.4); LYMPHOCYTES % (AUTO) 17.3 (10.0-50.0); MEAN CORPUSCULAR HEMOGLOBIN 30.1 pg (27.0-31.0); MEAN CORPUSCULAR HGB CONC 33.8 (31.8-35.4); MONOCYTES # (AUTO) 1.8 K/uL (0.4-2.0); MONOCYTES % (AUTO) 24.9 (0-10); NEUTROPHILS # (AUTO) 4.1 K/ul (2.0-6.9); NEUTROPHILS % (AUTO) 55.7 % (42.2-75.2); PLATELET COUNT 236 10^3/uL (140-440); RDW COEFFICIENT OF VARIATION 13.2 % (11.6-14.8); RED BLOOD COUNT 3.99 10^6/ul (4.20-5.40); WHITE BLOOD COUNT 7.34 K/ul (4.6-10.2)
[2024-02-06 12:59] LABS: BILIRUBIN,URINE Negative (NEGATIVE); CLARITY,URINE Clear (CLEAR); COLOR,URINE Yellow (YELLOW); GLUCOSE, URINE (UA) Negative (NEGATIVE); KETONES,URINE Negative (NEGATIVE); LEUKOCYTE ESTERASE ,URINE Negative (NEGATIVE); NITRITE,URINE Negative (NEGATIVE); PH,URINE 6.5 (5-9); PROTEIN,URINE Trace (NEGATIVE); URINE, BLOOD Negative (NEGATIVE); UROBILINOGEN,URINE 0.2 (0.2)
[2024-02-06 13:06] LABS: ALANINE AMINOTRANSFERASE 24.4 U/L (0-35); ALBUMIN 4.07 g/dL (3.5-5.0); ASPARTATE AMINO TRANSFERASE 34.3 U/L (14-36); BILIRUBIN,TOTAL 1.25 mg/dL (0.2-1.3); BLOOD UREA NITROGEN 10.8 mg/dL (7-17); CALCIUM 8.8 mg/dL (8.4-10.2); CARBON DIOXIDE 27.3 mmol/L (22-30.0); CHLORIDE 99.8 mmol/L (98-107); CREATININE 0.64 mg/dL (0.60-1.30); GLUCOSE 107.5 mg/dL (74-106); POTASSIUM 3.26 mmol/L (3.5-5.1); SODIUM 134.1 mmol/L (134.5-145); TOTAL PROTEIN 6.97 g/dL (6.3-8.2)
[2024-02-06 13:07] LABS: ALKALINE PHOSPHATASE 83.5 U/L (53-141); LIPASE 923.5 U/L (23-300)
[2024-02-06 13:13] LABS: SQUAMOUS EPITHELIAL CELL,UR 0-2 (0-5)
[2024-02-06 13:14] LABS: BACTERIA,URINE TRACE (NOT PRESENT); MUCUS,URINE 1+ (NOT PRESENT); TRIPLE PHOSPHATE CRYSTAL,UR TRACE (NOT PRESENT)
[2024-02-06 13:17] LABS: TROPONIN I 0.013 ng/ml (0.0000-0.120)
--- NOTE | 2024-02-06 13:29 | CT ---
EXAM: CT ABDOMEN AND PELVIS WITHOUT CONTRAST HISTORY: Right lower abdominal pain. TECHNIQUE: CT acquisition of the abdomen and pelvis from the lower thorax through the pelvis without IV contrast administration. 2-D coronal and sagittal reformatted images were obtained from the axial source images. Oral Contrast: None. CT Dose Reduction Techniques Performed: Yes. COMPARISON: 08/09/2015 FINDINGS: Lower Thorax: Calcified granuloma in the right middle lobe. Scarring seen in the left lower lobe. L nataliia bases are otherwise clear. Liver: No mass. Normal morphology. Biliary: Cholecystectomy. The biliary system is unremarkable. Pancreas: No mass or evidence of pancreatitis. No duct dilation. Spleen: No mass. No splenomegaly. Adrenals: No mass. Kidneys/Ureters: No renal mass. Punctate stones in the inferior collecting system of the left kidney without hydronephrosis. Right kidney shows no stone or hydronephrosis. GI Tract: A few diverticula seen along the sigmoid colon without pericolonic inflammation in the colo n shows no other focal abnormality. The appendix appears normal. Small bowel shows a few prominent loops of bowel without overt dilatation, wall thickening or focal abnormality. No discrete area of t ransition. The proximal small bowel is unremarkable. Stomach is unremarkable. Peritoneal Cavity: No free air, free fluid, fluid collections. The the right lower abdomen does show mild fat stranding with a couple small lymph nodes. Retroperitoneum: No fluid collection. Lymph Nodes: No lymphadenopathy. Vasculature: Mild aortic calcifications. No aortic or iliac aneurysm within limitations of noncontra st examination. Pelvis: No mass. Bladder is normal. Bones/Soft Tissues: No fracture or lytic lesion. Mild degenerative changes in the spine Visualized ab dominal wall soft tissues are normal. IMPRESSION: 1. The appendix appears normal. 2. The right lower abdomen does show mild fat stranding and small lymph nodes. This nonspecific and discrete cause is not identified. If symptoms persist follow-up exam, with intravenous contrast can evaluate for changes to the right lower abdomen including early changes of colitis. 3. Mild prominent loops of small bowel without indication of obstruction. This is nonspecific at th is time and could be due to early enteritis. However if symptoms persist suggest follow-up exam to r eassess the bowel gas pattern for any indication of early obstructive changes. 4. Nonobstructing left nephrolithiasis. 5. Sigmoid diverticulosis without radiographic indication of diverticulitis. 6. Other chronic and non emergent findings as above. All CT scans are performed using dose optimization techniques as appropriate to the performed exam an d include at least one of the following: Automated exposure control, adjustment of the mA and/or kV according t o size, and the use of iterative reconstruction technique.
[2024-02-06] MEDS: K-DUR PO STA (13:44)
[2024-02-06 13:52] LABS: CHOLESTEROL 100.7 mg/dL (0-200); HDL CHOLESTEROL 33.2 mg/dL (35-80); TRIGLYCERIDES 65.1 mg/dL (0-150)
[2024-02-06 13:54] LABS: SARS COV-2 RNA RAPID NAAT NEGATIVE (NEGATIVE)
[2024-02-06] MEDS ORDERED: DEXTROSE 50%-WATER ABBOJECT IVP PRN (14:16)
[2024-02-06] MEDS ORDERED: ZOFRAN 4 MG/2 ML IVP PRN (14:16)
[2024-02-06] MEDS ORDERED: TYLENOL PO PRN (14:16)
[2024-02-06] MEDS: DEXTROSE 5%-LR IV SOLUTION 1,000 ML IV SCH (14:33)
--- NOTE | 2024-02-06 14:49 | PCM ---
Date of Service Date Seen by Provider: 02/06/24 Time Seen by Provider: 14:30 Admit Day/Time Admission Date: 02/06/24 Admission Time: 14:15 Reason for Admission Chief Complaint: PANCREATITIS Hospital Provider Hospital Provider: SARAH ALCANTARA, [facility] Primary Care Physician Primary Care Physician: ELEAZAR HERRERA History of Present Illness History of Present Illness: 78 yo female presents to the ER with complaints of N/V/D since Friday01/31/24. Reports that the vomiting stopped on Friday but the nausea and diarrhea has persisted. Also has complaints of lower abdominal pain that she describes as a constant ache. Denies any blood noted in vomit or stool. Had a fever of 101 one day since she's been sick. Patient was found to have lipase in the 900s. Colitis/enteritis noted on Ct scan. Admitted to med/surg observation. Case Discussed With Case Discussed With: Patient's case was discussed with the ER Physicians, Dr. Hurley. 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 - Squamous cell carcinoma of skin of unspecified upper limb, including shoulder (ICD-10) Basal cell carcinoma C44.91 - Basal cell carcinoma of skin, unspecified (ICD-10) Cardiac dysrhythmia, unspecified I49.9 - Cardiac arrhythmia, unspecified (ICD-10) TIA (transient ischemic attack) G45.9 - Transient cerebral ischemic attack, unspecified (ICD-10) Hypertension I10 - Essential (primary) hypertension (ICD-10) Surgical History Hx of cholecystectomy Z90.49 - Acquired absence of other specified parts of digestive tract (ICD- 10) H/O total hysterectomy Z90.710 - Acquired absence of both cervix and uterus (ICD-10) Family History Mother Heart attack Social History Smoking and tobacco status: Never smoker Alcohol intake: current Alcohol intake frequency: a few times a month Alcohol type: wine Substance use type: does not use Allergies Allergies Allergy/AdvReac Type Severity Reaction Status Date / Time bacitracin AdvReac Swelling Verified 02/06/24 12:03 [From Neosporin ([id number])] bacitracin zinc AdvReac Swelling Verified 02/06/24 12:03 [From Neosporin ([id number])] codeine AdvReac Unknown Verified 02/06/24 12:03 neomycin sulfate AdvReac Swelling Verified 02/06/24 12:03 [From Neosporin ([id number])] polymyxin B AdvReac Swelling Verified 02/06/24 12:03 [From Neosporin ([id number])] latex sensivity AdvReac Rash Uncoded 02/06/24 12:03 Current Medications Home Medications citalopram 40 mg tablet 40 mg PO DAILY 06/24/14 [History Confirmed 02/06/24 Last Taken 06/27/14] loratadine 10 mg tablet 10 mg PO DAILY 06/24/14 [History Confirmed 02/06/24 Last Taken 06/27/14] pantoprazole 40 mg tablet,delayed release 40 mg PO DAILY 06/24/14 [History Confirmed 02/06/24 Last Taken 06/26/14] solifenacin 10 mg tablet (Vesicare) 10 mg PO DAILY 06/24/14 [History Confirmed 02/06/24 Last Taken 06/27/14] trazodone 150 mg tablet 150 mg PO DAILY 06/24/14 [History Confirmed 02/06/24 Last Taken 06/25/14] multivitamin 1 cap PO DAILY 06/28/14 [History Confirmed 02/06/24 Last Taken 06/25/14] clopidogrel 75 mg tablet (Plavix) 75 mg PO DAILY 12/13/20 [History Confirmed 02/06/24 Last Taken Unknown] atorvastatin 20 mg tablet (Lipitor) 40 mg PO BEDTIME 02/06/24 [History Confirmed 02/06/24 Last Taken Unknown] ciclopirox 8 % topical solution 1 applic topical QHS 02/06/24 [History Confirmed 02/06/24 Last Taken Unknown] isosorbide mononitrate 30 mg tablet,extended release 24 hr 30 mg PO QAM 02/06/24 [History Confirmed 02/06/24 Last Taken Unknown] mirabegron 50 mg tablet,extended release 24 hr 50 mg PO QDAY 02/06/24 [History Confirmed 02/06/24 Last Taken Unknown] sertraline 50 mg tablet (Zoloft) 50 mg PO QDAY 02/06/24 [History Confirmed 02/06/24 Last Taken Unknown] Home Acetaminophen (Acetaminophen 325 Mg Tablet) 650 mg PO Q4H PRN PRN Reason: Mild Pain Dextrose (Dextrose 50 % In Water 50 Ml Disp.Syrin) 50 ml IVP ONCE PRN; Protocol PRN Reason: Unconscious Hypoglycemia Sodium Chloride (Sodium Chloride) 1,000 mls @ 125 mls/hr IV .Q8H ONE Stop: 02/06/24 21:45 Last Admin: 02/06/24 14:29 Dose: Not Given Dextrose/Lactated Ringer's (Dextrose 5%-Lr Iv Solution) 1,000 mls @ 125 mls/hr IV .Q8H [facility] Last Admin: 02/06/24 14:33 Dose: 125 mls/hr Ketorolac Tromethamine (Ketorolac Tromethamine 15 Mg/Ml Vial) 15 mg IVP Q6HR PRN PRN Reason: Pain Stop: 02/10/24 14:20 Ondansetron HCl (Ondansetron Hcl/Pf 4 Mg/2 Ml Sdv) 4 mg IVP Q6H PRN PRN Reason: Nausea / Vomiting Discontinued Medications Sodium Chloride (Sodium Chloride) 1,000 mls @ 1,000 mls/hr IV BOLUS ONE Stop: 02/06/24 13:29 Last Infusion: 02/06/24 13:50 Dose: Infused Ondansetron HCl (Ondansetron Hcl/Pf 4 Mg/2 Ml Sdv) 4 mg IVP ONCE STA Stop: 02/06/24 12:34 Last Admin: 02/06/24 12:38 Dose: 4 mg Potassium Chloride (Potassium Chloride 20 Meq Tab) 40 meq PO ONCE STA Stop: 02/06/24 13:40 Last Admin: 02/06/24 13:44 Dose: 40 meq Opioid Naive vs. Tolerant Does Patient Take Opioids?: No Is Patient Opioid Naive?: Yes What is Opioid Naive?: *Opioid Naive implies the patient is not already taking opioids or not chronically receiving opioids on a daily basis. *PRN dosing is not "usually" associated with tolerance. *Patients are at higher risk of over-sedation and aspiration. Is Patient Opioid Tolerant?: No What is Opioid Tolerant?: *Opioid Tolerance implies less than the expected response to an opioid. *Acquired tolerance is defined by the patient taking 60mg of oral morphine daily (or equianalgesic dose of another opioid) for 1 week or more. *Often associated with chronic pain. *May take more than usual dose to achieve desired pain control. Review of Systems Constitutional: Reports Fever Head: Reports Normocephalic Eyes: Reports No symptoms Ears: Reports No symptoms Nose: Reports No symptoms Mouth: Reports No symptoms Throat: Reports No symptoms Cardiovascular: Reports No symptoms Respiratory: Reports No symptoms Gastrointestinal: Reports Nausea, Vomiting, Diarrhea and Abdominal pain Genitourinary: Reports No Symptoms Musculoskeletal: Reports No symptoms Endocrine: Reports No symptoms Hematology: Reports No symptoms Immunology: Reports No symptoms Neurological: Reports No symptoms Psychiatric: Reports No symptoms Physical examination Most Recent Vital Signs: Most Recent Vital Signs Temperature 97.3 F L 02/06/24 14:16 Temperature Source Oral 02/06/24 14:16 Temperature Source Infrared 02/06/24 12:03 Pulse Rate 71 02/06/24 14:16 Respiratory Rate 16 02/06/24 14:16 Blood Pressure 139/67 02/06/24 14:00 Blood Pressure Left Arm 157/69 02/06/24 14:16 Blood Pressure Position Supine 02/06/24 14:16 O2 Sat by Pulse Oximetry 95 02/06/24 14:16 Oxygen Delivery Method Room Air 02/06/24 14:16 Height 5 ft 8 in 02/06/24 14:16 Weight 128 lb 02/06/24 14:16 Appearance: Positive No Apparent Distress and Alert and Oriented x3 Skin: Positive Warm and Other (pale) HEENT: Positive Normocephalic and Atraumatic Neck: Positive Supple and Midline Trachea Chest/Lungs: Positive Symmetrical With Equal Breath Sounds, Clear to Auscultation Bilaterally and Good Air Movement all 4 Lung Baker Heart: Positive RRR and Pulses Normal GI/: Positive Soft, Nontender, Bowel Sounds Normal and Tender (bilateral lower quadrants) Musculoskeletal: Positive Not Examined Extremities: Positive Intact Peripheral Pulses, Stable Joints Without Laxity and Good ROM in All Joints Neurological: Positive Sensation Intact, Motor intact, Alert and Oriented Labs This Visit Labs This Visit: Labs This Visit 02/06/24 02/06/24 02/06/24 12:40 12:43 13:35 WBC 7.34 RBC 3.99 L Hgb 12.0 Hct 35.5 L MCV 89.0 MCH 30.1 MCHC 33.8 RDW Coeff of Neal 13.2 Plt Count 236 Immature Gran % (Auto) 0.8 Neut % (Auto) 55.7 Lymph % (Auto) 17.3 [place] % (Auto) 24.9 H Eos % (Auto) 0.8 Baso % (Auto) 0.5 Neut # (Auto) 4.1 Lymph # (Auto) 1.3 [place] # (Auto) 1.8 Eos # (Auto) 0.1 Baso # (Auto) 0.0 Immature Gran # (Auto) 0.1 Sodium 134.1 L Potassium 3.26 L Chloride 99.8 Carbon Dioxide 27.3 Anion Gap 10.26 BUN 10.8 Creatinine 0.64 Estimated GFR (MDRD) 90.00 BUN/Creatinine Ratio 16.87 Glucose 107.5 H Lactic Acid 0.67 L Calcium 8.80 Total Bilirubin 1.25 AST 34.3 ALT 24.4 Alkaline Phosphatase 83.5 Troponin I 0.013 Total Protein 6.97 Albumin 4.07 Globulin 2.90 Albumin/Globulin Ratio 1.40 Triglycerides 65.1 Cholesterol 100.7 LDL Cholesterol, Calc 54 VLDL Cholesterol 13 HDL Cholesterol 33.2 L Cholesterol/HDL Ratio 3.0 L Lipase 923.5 H Urine Color Yellow Urine Clarity Clear Urine pH 6.5 Ur Specific [place] 1.010 Urine Protein Trace H Urine Glucose (UA) Negative Urine Ketones Negative Urine Blood Negative Urine Nitrite Negative Urine Bilirubin Negative Urine Urobilinogen 0.2 Ur Leukocyte Esterase Negative Ur Squamous Epith Cells 0-2 Ur Renal Epithelial Cell 2-5 Triple Phos Crystals Trace Urine Bacteria Trace Urine Mucus 1+ SARS CoV-2 RNA Rapid KRISTOFER Negative Imaging Imaging: EXAM: CT ABDOMEN AND PELVIS WITHOUT CONTRAST FINDINGS: Lower Thorax: Calcified granuloma in the right middle lobe. Scarring seen in the left lower lobe. Lung bases are otherwise clear. Liver: No mass. Normal morphology. Biliary: Cholecystectomy. The biliary system is unremarkable. Pancreas: No mass or evidence of pancreatitis. No duct dilation. Spleen: No mass. No splenomegaly. Adrenals: No mass. Kidneys/Ureters: No renal mass. Punctate stones in the inferior collecting system of the left kidney without hydronephrosis. Right kidney shows no stone or hydronephrosis. GI Tract: A few diverticula seen along the sigmoid colon without pericolonic inflammation in the colon shows no other focal abnormality. The appendix ap pears normal. Small bowel shows a few prominent loops of bowel without overt dilatation, wall thickening or focal abnormality. No discrete area of transition. The proximal small bowel is unremarkable. Stomach is unremarkable. Peritoneal Cavity: No free air, free fluid, fluid collections. The the right lower abdomen does show mild fat stranding with a couple small lymph nodes. Retroperitoneum: No fluid collection. Lymph Nodes: No lymphadenopathy. Vasculature: Mild aortic calcifications. No aortic or iliac aneurysm within limitations of noncontrast examination. Pelvis: No mass. Bladder is normal. Bones/Soft Tissues: No fracture or lytic lesion. Mild degenerative changes in the spine Visualized abdominal wall soft tissues are normal. IMPRESSION: 1. The appendix appears normal. 2. The right lower abdomen does show mild fat stranding and small lymph nodes. This nonspecific and discrete cause is not identified. If symptoms persist follow-up exam, with intravenous contrast can evaluate for changes to the right lower abdomen including early changes of colitis. 3. Mild prominent loops of small bowel without indication of obstruction. This is nonspecific at this time and could be due to early enteritis. However if symptoms persist suggest follow-up exam to reassess the bowel gas pattern for any indication of early obstructive changes. 4. Nonobstructing left nephrolithiasis. 5. Sigmoid diverticulosis without radiographic indication of diverticulitis. 6. Other chronic and non emergent findings as above. Review Statement Review Statement: I have independently reviewed and interpreted the labs/EKGs/imaging that were ordered by the ER provider. I have reviewed all outside records that are avai lable currently in our EMR including imaging/notes/labs from previous visits. Plan Plan: 1. Acute Pancreatitis with colitis - NPO, ice chips/sips of water only, D5LR@125mL/hr, trend lipase, advance diet as pain resolves 2. Hypokalemia - mild, replaced in ER, monitor 3. Lactic acidosis - mild, receiving fluids, trend and monitor 4. Hypertension - chronic, continue home medications 5. Hyperlipidemia - chronic, stable, continue home medications DVT Prophylaxis: Ambulation Time Spent: Greater than 80 minutes spent with patient, 50% of the time spent with this patient was devoted to counseling and coordination of care. [facility]annin minutes spent discussing advance care planning. Disposition: Admit to: Med/Surg Observation Full Code Discussed Plan of Care with Dr. Silvino Landis. Medications Medication Orders: Medications Ordered Category Date Time Status Acetaminophen [Tylenol] Meds 02/06/24 14:16 Active 650 mg PO Q4H PRN Dextrose 5%-Lactated Ringers [Dextrose 5%-Lr IV Meds 02/06/24 14:30 Active Solution] 1,000 ml IV 125 mls/hr Dextrose 50 % in Water [Dextrose 50%-Water Abboject] Meds 02/06/24 14:16 Active 50 ml IVP ONCE PRN Ketorolac Tromethamine [Toradol] Meds 02/06/24 14:16 Active 15 mg IVP Q6HR PRN Ondansetron HCl/Pf [Zofran 4 mg/2 ml] Meds 02/06/24 14:16 Active 4 mg IVP Q6H PRN Sodium Chloride 0.9% [Sodium Chloride] 1,000 ml Meds 02/06/24 13:46 Active IV 125 mls/hr
[2024-02-06] MEDS: TORADOL IVP PRN (21:37)
[2024-02-06] MEDS: DESYREL PO SCH (21:37)
[2024-02-06] MEDS: LIPITOR PO SCH (21:37)
[2024-02-07] MEDS: PROTONIX PO SCH (05:13)
[2024-02-07 05:41] LABS: BASOPHILS % (AUTO) 0.3 % (0.0-3.0); EOSINOPHILS # (AUTO) 0.1 K/ul (0.0-0.7); EOSINOPHILS % (AUTO) 1.5 % (0.0-7.0); HEMATOCRIT 30.8 % (37.0-47.0); HEMOGLOBIN 10.4 g/dl (12.0-16.0); IMMATURE GRANULOCYTE # (AUTO) 0.1 (0.0-1.0); IMMATURE GRANULOCYTE % (AUTO) 0.7 % (0.0-5.0); LYMPHOCYTES # (AUTO) 1.3 K/uL (0.60-3.4); LYMPHOCYTES % (AUTO) 17.1 (10.0-50.0); MEAN CORPUSCULAR HEMOGLOBIN 30.6 pg (27.0-31.0); MEAN CORPUSCULAR HGB CONC 33.8 (31.8-35.4); MEAN CORPUSCULAR VOLUME 90.6 fl (81.0-99.0); MONOCYTES # (AUTO) 1.8 K/uL (0.4-2.0); MONOCYTES % (AUTO) 24.1 (0-10); NEUTROPHILS # (AUTO) 4.2 K/ul (2.0-6.9); NEUTROPHILS % (AUTO) 56.3 % (42.2-75.2); PLATELET COUNT 204 10^3/uL (140-440); RDW COEFFICIENT OF VARIATION 13.7 % (11.6-14.8); WHITE BLOOD COUNT 7.47 K/ul (4.6-10.2)
[2024-02-07 05:54] LABS: ALANINE AMINOTRANSFERASE 21.5 U/L (0-35); ALBUMIN 3.28 g/dL (3.5-5.0); ALKALINE PHOSPHATASE 68.2 U/L (53-141); ASPARTATE AMINO TRANSFERASE 30.9 U/L (14-36); BILIRUBIN,TOTAL 0.85 mg/dL (0.2-1.3); BLOOD UREA NITROGEN 5.2 mg/dL (7-17); CALCIUM 8.41 mg/dL (8.4-10.2); CARBON DIOXIDE 27.9 mmol/L (22-30.0); CHLORIDE 104.5 mmol/L (98-107); CREATININE 0.6 mg/dL (0.60-1.30); GLUCOSE 115.8 mg/dL (74-106); LIPASE 657.8 U/L (23-300); POTASSIUM 3.4 mmol/L (3.5-5.1); SODIUM 136.1 mmol/L (134.5-145); TOTAL PROTEIN 5.84 g/dL (6.3-8.2)
[2024-02-07] MEDS: VESICARE PO SCH (08:40)
[2024-02-07] MEDS: CLARITIN PO SCH (08:41)
[2024-02-07] MEDS: IMDUR PO SCH (08:41)
[2024-02-07] MEDS: CELEXA PO SCH (08:41)
[2024-02-07] MEDS: PLAVIX PO SCH (08:42)
[2024-02-07] MEDS: MYRBETRIQ PO SCH (08:45)
[2024-02-07] MEDS: MULTIVITAMIN TABLET PO SCH (08:48)
[2024-02-07] MEDS: ZOLOFT PO SCH (08:48)
--- NOTE | 2024-02-07 09:36 | PCM.PROG ---
Date/Time Seen Date Seen by Provider: 02/07/24 Time Seen by Provider: 09:10 Provider Provider[facility] Chief Complaint Chief Complaint: PANCREATITIS Subjective Subjective: Feeling some better today. Tolerated clears for breakfast well. Mild pain present to the LLQ with movement. Objective Appearance: Positive No Apparent Distress and Alert and Oriented x3 Chest/Lungs: Positive Symmetrical With Equal Breath Sounds, Clear to Auscultat ion Bilaterally and Good Air Movement all 4 Lung Baker Heart: Positive RRR and Pulses Normal GI/: Positive Soft, Nontender, Bowel Sounds Normal, No Distention and Tender (LLQ) Musculoskeletal: Positive Not Examined Neurological: Positive Sensation Intact, Motor intact, Alert, Oriented and Muscle Strength 5/5 in Upper and Lower Extremities Bilaterally Vital Signs Vital Signs: Vital Signs: Last 24 Hours 02/06/24 12:03 02/06/24 14:00 02/06/24 14:16 Temperature 98.8 F 97.3 F L Temperature Source Infrared Oral Pulse Rate 68 62 71 Respiratory Rate 20 16 Blood Pressure 137/54 L 139/67 Blood Pressure Mean Blood Pressure Left Arm 157/69 Blood Pressure Location Blood Pressure Position Supine O2 Sat by Pulse Oximetry 93 L 95 Oxygen Delivery Method Room Air Height 5 ft 8 in 5 ft 8 in Weight 128 lb 128 lb 02/06/24 14:16 02/06/24 15:00 02/06/24 16:00 Temperature Temperature Source Pulse Rate Respiratory Rate Blood Pressure Blood Pressure Mean Blood Pressure Left Arm Blood Pressure Location Blood Pressure Position O2 Sat by Pulse Oximetry Oxygen Delivery Method Room Air Room Air Room Air Height Weight 02/06/24 16:58 02/06/24 17:31 02/06/24 17:36 Temperature 98.2 F Temperature Source Temporal Artery Scan Pulse Rate 65 Respiratory Rate 16 Blood Pressure 135/59 L Blood Pressure Mean 84 Blood Pressure Left Arm Blood Pressure Location Right Arm Blood Pressure Position Supine O2 Sat by Pulse Oximetry 93 L Oxygen Delivery Method Room Air Room Air Room Air Height Weight 02/06/24 19:00 02/06/24 20:00 02/06/24 20:00 Temperature Temperature Source Pulse Rate Respiratory Rate 18 Blood Pressure Blood Pressure Mean Blood Pressure Left Arm Blood Pressure Location Blood Pressure Position O2 Sat by Pulse Oximetry Oxygen Delivery Method Room Air Room Air Room Air Height Weight 02/06/24 21:00 02/06/24 21:49 02/06/24 22:00 Temperature 98.3 F Temperature Source Oral Pulse Rate 66 Respiratory Rate 19 Blood Pressure 137/68 Blood Pressure Mean 91 Blood Pressure Left Arm Blood Pressure Location Right Arm Blood Pressure Position Supine O2 Sat by Pulse Oximetry 94 L Oxygen Delivery Method Room Air Room Air Room Air Height Weight 02/06/24 23:00 02/07/24 00:00 02/07/24 01:00 Temperature Temperature Source Pulse Rate Respiratory Rate Blood Pressure Blood Pressure Mean Blood Pressure Left Arm Blood Pressure Location Blood Pressure Position O2 Sat by Pulse Oximetry Oxygen Delivery Method Room Air Room Air Room Air Height Weight 02/07/24 01:44 02/07/24 01:45 02/07/24 03:00 Temperature 97.3 F L Temperature Source Temporal Artery Scan Pulse Rate 62 Respiratory Rate 16 Blood Pressure 104/62 Blood Pressure Mean 76 Blood Pressure Left Arm Blood Pressure Location Right Arm Blood Pressure Position Supine O2 Sat by Pulse Oximetry 94 L Oxygen Delivery Method Room Air Room Air Room Air Height Weight 02/07/24 04:00 02/07/24 04:50 02/07/24 05:17 Temperature 98.3 F Temperature Source Temporal Artery Scan Pulse Rate 61 Respiratory Rate 16 Blood Pressure 130/59 L Blood Pressure Mean 82 Blood Pressure Left Arm Blood Pressure Location Right Arm Blood Pressure Position Supine O2 Sat by Pulse Oximetry 94 L Oxygen Delivery Method Room Air Room Air Room Air Height Weight 02/07/24 05:27 02/07/24 07:00 02/07/24 08:00 Temperature Temperature Source Pulse Rate Respiratory Rate Blood Pressure Blood Pressure Mean Blood Pressure Left Arm Blood Pressure Location Blood Pressure Position O2 Sat by Pulse Oximetry Oxygen Delivery Method Room Air Room Air Room Air Height Weight 02/07/24 08:00 02/07/24 09:00 Temperature Temperature Source Pulse Rate Respiratory Rate 16 Blood Pressure Blood Pressure Mean Blood Pressure Left Arm Blood Pressure Location Blood Pressure Position O2 Sat by Pulse Oximetry Oxygen Delivery Method Room Air Room Air Height Weight Lab Results Lab Results: Lab Results: Last 24 Hours 02/07/24 02/06/24 02/06/24 05:28 13:35 12:43 WBC 7.47 7.34 RBC 3.40 L 3.99 L Hgb 10.4 L 12.0 Hct 30.8 L 35.5 L MCV 90.6 89.0 MCH 30.6 30.1 MCHC 33.8 33.8 RDW Coeff of Neal 13.7 13.2 Plt Count 204 236 Immature Gran % (Auto) 0.7 0.8 Neut % (Auto) 56.3 55.7 Lymph % (Auto) 17.1 17.3 [place] % (Auto) 24.1 H 24.9 H Eos % (Auto) 1.5 0.8 Baso % (Auto) 0.3 0.5 Neut # (Auto) 4.2 4.1 Lymph # (Auto) 1.3 1.3 [place] # (Auto) 1.8 1.8 Eos # (Auto) 0.1 0.1 Baso # (Auto) 0.0 0.0 Immature Gran # (Auto) 0.1 0.1 Sodium 136.1 134.1 L Potassium 3.40 L 3.26 L Chloride 104.5 99.8 Carbon Dioxide 27.9 27.3 Anion Gap 7.10 10.26 BUN 5.2 L 10.8 Creatinine 0.60 0.64 Estimated GFR (MDRD) 97.00 90.00 BUN/Creatinine Ratio 8.66 16.87 Glucose 115.8 H 107.5 H Lactic Acid 0.55 L D 0.67 L Calcium 8.41 8.80 Total Bilirubin 0.85 1.25 AST 30.9 34.3 ALT 21.5 24.4 Alkaline Phosphatase 68.2 83.5 Troponin I 0.013 Total Protein 5.84 L 6.97 Albumin 3.28 L 4.07 Globulin 2.56 2.90 Albumin/Globulin Ratio 1.28 1.40 Triglycerides 65.1 Cholesterol 100.7 LDL Cholesterol, Calc 54 VLDL Cholesterol 13 HDL Cholesterol 33.2 L Cholesterol/HDL Ratio 3.0 L Lipase 657.8 H 923.5 H Urine Color Urine Clarity Urine pH Ur Specific [place] Urine Protein Urine Glucose (UA) Urine Ketones Urine Blood Urine Nitrite Urine Bilirubin Urine Urobilinogen Ur Leukocyte Esterase Ur Squamous Epith Cells Ur Renal Epithelial Cell Triple Phos Crystals Urine Bacteria Urine Mucus SARS CoV-2 RNA Rapid KRISTOFER Negative 02/06/24 12:40 WBC RBC Hgb Hct MCV MCH MCHC RDW Coeff of Neal Plt Count Immature Gran % (Auto) Neut % (Auto) Lymph % (Auto) [place] % (Auto) Eos % (Auto) Baso % (Auto) Neut # (Auto) Lymph # (Auto) [place] # (Auto) Eos # (Auto) Baso # (Auto) Immature Gran # (Auto) Sodium Potassium Chloride Carbon Dioxide Anion Gap BUN Creatinine Estimated GFR (MDRD) BUN/Creatinine Ratio Glucose Lactic Acid Calcium Total Bilirubin AST ALT Alkaline Phosphatase Troponin I Total Protein Albumin Globulin Albumin/Globulin Ratio Triglycerides Cholesterol LDL Cholesterol, Calc VLDL Cholesterol HDL Cholesterol Cholesterol/HDL Ratio Lipase Urine Color Yellow Urine Clarity Clear Urine pH 6.5 Ur Specific [place] 1.010 Urine Protein Trace H Urine Glucose (UA) Negative Urine Ketones Negative Urine Blood Negative Urine Nitrite Negative Urine Bilirubin Negative Urine Urobilinogen 0.2 Ur Leukocyte Esterase Negative Ur Squamous Epith Cells 0-2 Ur Renal Epithelial Cell 2-5 Triple Phos Crystals Trace Urine Bacteria Trace Urine Mucus 1+ SARS CoV-2 RNA Rapid KRISTOFER Additional Comments Additional Comments: I have independently reviewed and interpreted the labs/EKGs/imaging ordered during this hospital stay. I have reviewed outside records that are available in our EMR that pertain to medical stay including imaging/notes/labs from previous visits. Active Medications Active Medications: Medications Generic Name Dose Route Start Last Admin Trade Name Freq PRN Reason Stop Dose Admin Acetaminophen 650 mg 02/06/24 14:16 Acetaminophen 325 Mg Tablet PO Q4H PRN Mild Pain Atorvastatin Calcium 40 mg 02/06/24 21:00 02/06/24 21:37 Atorvastatin Calcium 20 Mg Tablet PO 40 mg BEDTIME TIM Administration Citalopram Hydrobromide 40 mg 02/07/24 09:00 02/07/24 08:41 Citalopram Hydrobromide 20 Mg Tablet PO 40 mg DAILY TIM Administration Clopidogrel Bisulfate 75 mg 02/07/24 09:00 02/07/24 08:42 Clopidogrel Bisulfate 75 Mg Tablet PO 75 mg DAILY TIM Administration Dextrose 50 ml 02/06/24 14:16 Dextrose 50 % In Water 50 Ml Disp.Syrin IVP ONCE PRN Unconscious Hypoglycemia Protocol Dextrose/Lactated Ringer's 1,000 mls @ 125 mls/hr 02/06/24 14:30 02/07/24 05:12 Dextrose 5%-Lr Iv Solution IV 125 mls/hr .Q8H TIM Administration Isosorbide Mononitrate 30 mg 02/07/24 09:00 02/07/24 08:41 Isosorbide Mononitrate 30 Mg Tab.Er.24h PO 30 mg QAM TIM Administration Ketorolac Tromethamine 15 mg 02/06/24 14:16 02/06/24 21:37 Ketorolac Tromethamine 15 Mg/Ml Vial IVP 02/10/24 14:20 15 mg Q6HR PRN Administration Pain Loratadine 10 mg 02/07/24 09:00 02/07/24 08:41 Loratadine 10 Mg Tablet PO 10 mg DAILY TIM Administration Mirabegron 50 mg 02/07/24 09:00 02/07/24 08:45 Mirabegron 25 Mg Tab.Er.24h PO 50 mg DAILY TIM Administration Multivitamins 1 tab 02/07/24 09:00 02/07/24 08:48 Multivitamin 1 Tab PO 1 tab DAILY TIM Administration Ondansetron HCl 4 mg 02/06/24 14:16 Ondansetron Hcl/Pf 4 Mg/2 Ml Sdv IVP Q6H PRN Nausea / Vomiting Pantoprazole Sodium 40 mg 02/07/24 06:00 02/07/24 05:13 Pantoprazole Sodium 40 Mg Tablet. PO 40 mg QDAC2 TIM Administration Sertraline HCl 50 mg 02/07/24 09:00 02/07/24 08:48 Sertraline Hcl 50 Mg Tablet PO 50 mg DAILY TIM Administration Solifenacin 10 mg 02/07/24 09:00 02/07/24 08:40 Solifenacin Succinate 5 Mg Tablet PO 10 mg DAILY TIM Administration Trazodone HCl 150 mg 02/06/24 21:00 02/06/24 21:37 Trazodone Hcl 50 Mg Tablet PO 150 mg BEDTIME TIM Administration Plan Plan: 1. Acute Pancreatitis with colitis - Improving, advanced diet to clears today, lipase trending down but still elevated in 600s, continue D5LR@125mL/hr 2. Hypokalemia - Improving, additional replacement ordered, monitor 3. Lactic acidosis - Improving, receiving fluids, trend and monitor 4. Hypertension - chronic, continue home medications 5. Hyperlipidemia - chronic, stable, continue home medications DVT Prophylaxis: Ambulation Review Statement Review Statement: I have personally discussed and reviewed the patient's visit/currently labs/imaging/decision making with Dr. Landis, my supervising attending. Greater that 50 minutes spent with patient, 50% of the time spent with this patient was devoted to counseling and coordination of care.
[2024-02-07] MEDS: K-DUR PO ONE (10:36)
[2024-02-07] MEDS: DEXTROSE 5%-LR IV SOLUTION 1,000 ML IV SCH (15:49)
[2024-02-07] MEDS: LASIX IVP ONE (15:55)
[2024-02-08 05:45] VITALS: RESP 16
[2024-02-08 06:12] LABS: BASOPHILS % (AUTO) 0.5 % (0.0-3.0); EOSINOPHILS # (AUTO) 0.1 K/ul (0.0-0.7); EOSINOPHILS % (AUTO) 1.3 % (0.0-7.0); HEMATOCRIT 29.5 % (37.0-47.0); IMMATURE GRANULOCYTE # (AUTO) 0.1 (0.0-1.0); IMMATURE GRANULOCYTE % (AUTO) 1.4 % (0.0-5.0); LYMPHOCYTES # (AUTO) 1.2 K/uL (0.60-3.4); LYMPHOCYTES % (AUTO) 14.1 (10.0-50.0); MEAN CORPUSCULAR HEMOGLOBIN 30.4 pg (27.0-31.0); MEAN CORPUSCULAR HGB CONC 33.9 (31.8-35.4); MEAN CORPUSCULAR VOLUME 89.7 fl (81.0-99.0); MONOCYTES # (AUTO) 1.7 K/uL (0.4-2.0); MONOCYTES % (AUTO) 19.3 (0-10); NEUTROPHILS # (AUTO) 5.6 K/ul (2.0-6.9); NEUTROPHILS % (AUTO) 63.4 % (42.2-75.2); PLATELET COUNT 226 10^3/uL (140-440); RDW COEFFICIENT OF VARIATION 13.7 % (11.6-14.8); RED BLOOD COUNT 3.29 10^6/ul (4.20-5.40); WHITE BLOOD COUNT 8.75 K/ul (4.6-10.2)
[2024-02-08 06:24] LABS: ALANINE AMINOTRANSFERASE 21.2 U/L (0-35); ALBUMIN 3.09 g/dL (3.5-5.0); ALKALINE PHOSPHATASE 69.3 U/L (53-141); BILIRUBIN,TOTAL 0.9 mg/dL (0.2-1.3); BLOOD UREA NITROGEN 4.4 mg/dL (7-17); CALCIUM 8.27 mg/dL (8.4-10.2); CARBON DIOXIDE 27.8 mmol/L (22-30.0); CREATININE 0.58 mg/dL (0.60-1.30); GLUCOSE 97.4 mg/dL (74-106); LIPASE 490.6 U/L (23-300); POTASSIUM 3.37 mmol/L (3.5-5.1); SODIUM 134.9 mmol/L (134.5-145); TOTAL PROTEIN 5.71 g/dL (6.3-8.2)
--- NOTE | 2024-02-08 09:14 | DCSUM ---
Admission Date Admission Date: 02/06/24 Discharge Date Discharge Date: 02/08/24 Admission Diagnosis Admission Diagnosis: 1. Acute Pancreatitis with colitis 2. Hypokalemia 3. Lactic acidosis 4. Hypertension 5. Hyperlipidemia Discharge Diagnosis Discharge Diagnosis: 1. Acute Pancreatitis with colitis - Improving 2. Hypokalemia - Resolved 3. Lactic acidosis - Improving 4. Hypertension - chronic, stable 5. Hyperlipidemia - chronic, stable Hospital Provider Hospital Provider: SARAH ALCANTARA, [facility] Primary Care Physician Primary Care Physician: ELEAZAR HERRERA Summary of History and Physical Summary of History and Physical: 78 yo female presents to the ER with complaints of N/V/D since Friday01/31/24. Reports that the vomiting stopped on Friday but the nausea and diarrhea has persisted. Also has complaints of lower abdominal pain that she describes as a constant ache. Denies any blood noted in vomit or stool. Had a fever of 101 one day since she's been sick. Patient was found to have lipase in the 900s. Colitis/enteritis noted on Ct scan. Admitted to med/surg observation. Hospital Course Subjective: During stay, patient was treated for pancreatitis. IV fluids given. Toradol ordered prn for abdominal pain. Tolerated clear liquids yesterday. Tolerated bland breakfast this am. No further abdominal pain. Lipase trending down. Lactic acid trended down. Had mild hypokalemia - replaced and stable. No changes to home medications. Appearance: Pleasant, No Apparent Distress and Alert HEENT: MMM, Supple and No JVD CVS: No Murmur Abdomen: Soft, Non-Tender and No Distention Respiratory: No Dyspnea Extremities: No Edema Vital Signs: Most Recent Vital Signs Temperature 97.5 F L 02/08/24 05:43 Temperature Source Temporal Artery Scan 02/08/24 05:43 Temperature Source Infrared 02/06/24 12:03 Pulse Rate 69 02/08/24 05:43 Respiratory Rate 16 02/08/24 05:43 Blood Pressure 135/53 L 02/08/24 05:43 Blood Pressure Mean 80 02/08/24 05:43 Blood Pressure Left Arm 157/69 02/06/24 14:16 Blood Pressure Location Left Arm 02/08/24 05:43 Blood Pressure Position Supine 02/08/24 05:43 O2 Sat by Pulse Oximetry 98 02/08/24 05:43 Oxygen Delivery Method Room Air 02/08/24 08:00 Height 5 ft 8 in 02/06/24 14:16 Weight 128 lb 02/06/24 14:16 Imaging: EXAM: CT ABDOMEN AND PELVIS WITHOUT CONTRAST FINDINGS: Lower Thorax: Calcified granuloma in the right middle lobe. Scarring seen in the left lower lobe. Lung bases are otherwise clear. Liver: No mass. Normal morphology. Biliary: Cholecystectomy. The biliary system is unremarkable. Pancreas: No mass or evidence of pancreatitis. No duct dilation. Spleen: No mass. No splenomegaly. Adrenals: No mass. Kidneys/Ureters: No renal mass. Punctate stones in the inferior collecting system of the left kidney without hydronephrosis. Right kidney shows no stone or hydronephrosis. GI Tract: A few diverticula seen along the sigmoid colon without pericolonic inflammation in the colon shows no other focal abnormality. The appendix appears normal. Small bowel shows a few prominent loops of bowel without overt dilatation, wall thickening or focal abnormality. No discrete area of transition. The proximal small bowel is unremarkable. Stomach is unremarkable. Peritoneal Cavity: No free air, free fluid, fluid collections. The the right lower abdomen does show mild fat stranding with a couple small lymph nodes. Retroperitoneum: No fluid collection. Lymph Nodes: No lymphadenopathy. Vasculature: Mild aortic calcifications. No aortic or iliac aneurysm within limitations of noncontrast examination. Pelvis: No mass. Bladder is normal. Bones/Soft Tissues: No fracture or lytic lesion. Mild degenerative changes in the spine Visualized abdominal wall soft tissues are normal. IMPRESSION: 1. The appendix appears normal. 2. The right lower abdomen does show mild fat stranding and small lymph nodes. This nonspecific and discrete cause is not identified. If symptoms persist follow-up exam, with intravenous contrast can evaluate for changes to the right lower abdomen including early changes of colitis. 3. Mild prominent loops of small bowel without indication of obstruction. This is nonspecific at this time and could be due to early enteritis. However if symptoms persist suggest follow-up exam to reassess the bowel gas pattern for any indication of early obstructive changes. 4. Nonobstructing left nephrolithiasis. 5. Sigmoid diverticulosis without radiographic indication of diverticulitis. 6. Other chronic and non emergent findings as above. Lab Results Last 24 Hours: 02/08/24 05:59 WBC 8.75 RBC 3.29 L Hgb 10.0 L Hct 29.5 L MCV 89.7 MCH 30.4 MCHC 33.9 RDW Coeff of Neal 13.7 Plt Count 226 Immature Gran % (Auto) 1.4 Neut % (Auto) 63.4 Lymph % (Auto) 14.1 [place] % (Auto) 19.3 H Eos % (Auto) 1.3 Baso % (Auto) 0.5 Neut # (Auto) 5.6 Lymph # (Auto) 1.2 [place] # (Auto) 1.7 Eos # (Auto) 0.1 Baso # (Auto) 0.0 Immature Gran # (Auto) 0.1 Sodium 134.9 Potassium 3.37 L Chloride 103.0 Carbon Dioxide 27.8 Anion Gap 7.47 BUN 4.4 L Creatinine 0.58 L Estimated GFR (MDRD) 101.00 BUN/Creatinine Ratio 7.58 Glucose 97.4 Lactic Acid 0.56 L Calcium 8.27 L Total Bilirubin 0.90 AST 34.0 ALT 21.2 Alkaline Phosphatase 69.3 Total Protein 5.71 L Albumin 3.09 L Globulin 2.62 Albumin/Globulin Ratio 1.17 Lipase 490.6 H Discharge Instructions Discharge Planning: Discharge Planning > 40 minutes If patient is discharged with left ventricular systolic dysfunction: NA Discharged with a beta bisi? [] If no, why not? [] Discharged with an alisa/arb? [] If no, why not? [] Diagnosis: Pancreatitis Diet: [place] over next few days, advance as tolerated Activity: as tolerated Follow-up with PCP this week No changes to home medications. Discharge Medications: Medications at Discharge (Home Meds & RX) citalopram 40 mg tablet 40 mg PO DAILY 06/24/14 loratadine 10 mg tablet 10 mg PO DAILY 06/24/14 pantoprazole 40 mg tablet,delayed release 40 mg PO DAILY 06/24/14 solifenacin 10 mg tablet (Vesicare) 10 mg PO DAILY 06/24/14 trazodone 150 mg tablet 150 mg PO DAILY 06/24/14 multivitamin 1 cap PO DAILY 06/28/14 clopidogrel 75 mg tablet (Plavix) 75 mg PO DAILY 12/13/20 atorvastatin 20 mg tablet (Lipitor) 40 mg PO BEDTIME 02/06/24 ciclopirox 8 % topical solution 1 applic topical QHS 02/06/24 isosorbide mononitrate 30 mg tablet,extended release 24 hr 30 mg PO QAM 02/06/24 mirabegron 50 mg tablet,extended release 24 hr 50 mg PO QDAY 02/06/24 sertraline 50 mg tablet (Zoloft) 50 mg PO QDAY 02/06/24 Discharge Plan Discharge Discharge Orders: Discharge Patient (ONCE); Ordered 02/08/24 Ordered By: MARGE HUA Activity Restrictions/Additional Instructions: Diagnosis: Pancreatitis Diet: [place] over next few days, advance as tolerated Activity: as tolerated Follow-up with PCP this week No changes to home medications. Instructions: Pancreatitis (GEN) Patient Disposition: HOME WITH FAMILY CARE Prescriptions: No Action citalopram 40 MG tablet 40 mg PO DAILY pantoprazole 40 MG tablet,delayed release (DR/EC) 40 mg PO DAILY trazodone 150 MG tablet 150 mg PO DAILY loratadine 10 MG tablet 10 mg PO DAILY solifenacin [Vesicare] 10 MG tablet 10 mg PO DAILY multivitamin 1 CAP capsule 1 cap PO DAILY clopidogrel [Plavix] 75 mg Tablet 75 mg PO DAILY atorvastatin [Lipitor] 20 mg tablet 40 mg PO BEDTIME sertraline [Zoloft] 50 mg tablet 50 mg PO QDAY mirabegron 50 mg tablet extended release 24 hr 50 mg PO QDAY isosorbide mononitrate 30 mg tablet extended release 24 hr 30 mg PO QAM ciclopirox 8 % solution 1 applic topical QHS Did you review [place] [employer] for ALL controlled substances?: No Discussed opioids are addictive and Narcan is available by prescription or from pharmacy.: No Condition: Stable
[2024-02-08 11:10] VITALS: BP 132/75; PULSE 61; TEMP 98.6
== END 2024-02-08 11:38 | disposition home or self-care (01) ==
LOC: ED 11:46 → MEDSURG B 11:46
PROVIDERS: ADMIT Hospitalist; ATTEND Nurse Practitioner Family
DX: I10 Essential (primary) hypertension; E87.6 Hypokalemia; N20.0 Calculus of kidney; Z79.899 Other long term (current) drug therapy; E87.20 Acidosis, unspecified; Z20.822 Contact with and (suspected) exposure to COVID-19; K85.90 Acute pancreatitis without necrosis or infection, unspecified; E78.5 Hyperlipidemia, unspecified; K52.9 Noninfective gastroenteritis and colitis, unspecified; K57.30 Diverticulosis of large intestine without perforation or abscess without bleeding; Z51.81 Encounter for therapeutic drug level monitoring